=== PATIENT | female | born 1950 | race Caucasian/White ===

== ENCOUNTER → 2021-09-16 | Outpatient (CLI) | payer MEDICARE, OTHER ==
[2021-09-16 13:38] LABS: PLATELET COUNT, AUTOMATED 137 10^3/uL (150-450)
== END ==
LOC: M LAB 11:23
PROVIDERS: ATTEND Internal Medicine Hematology
DX: D69.6 Thrombocytopenia, unspecified (principal)

== ENCOUNTER → 2022-07-21 | Outpatient (CLI) | payer MEDICARE, OTHER | LOC: M SLEEP HO 11:34 | PROVIDERS: ATTEND Internal Medicine Cardiovascular Disease | DX: G47.33 Obstructive sleep apnea (adult) (pediatric) (principal) ==

== ENCOUNTER → 2024-05-18 | Outpatient (CLI) | payer MEDICARE, OTHER ==
[~2024-05-18] MED LIST: AMMO12CR7 TOP; BISO1TAB19; BUSP15TA47; CHOL4POW26; CITA40TA7; COLE625T; GLIM1TAB84; MAGN400C2 PO; MAGN400T2 PO; OLME1TAB91; OMEG-28; OMEP40CA5; POTA1TAB23; SENTTAB2 PO; SIMV40TA20; XARE20TA; [UNRECOGNIZED DRUG - CODE]
== END ==
LOC: M RAD 10:07
PROVIDERS: ATTEND Internal Medicine Rheumatology
DX: D69.6 Thrombocytopenia, unspecified (principal); R76.8 Other specified abnormal immunological findings in serum; M25.50 Pain in unspecified joint; I50.30 Unspecified diastolic (congestive) heart failure; I08.0 Rheumatic disorders of both mitral and aortic valves; I37.1 Nonrheumatic pulmonary valve insufficiency

== ENCOUNTER → 2024-05-23 | Outpatient (CLI) | payer MEDICARE, OTHER | LOC: M CARPUL 10:52 | PROVIDERS: ATTEND Internal Medicine Rheumatology | DX: D69.6 Thrombocytopenia, unspecified (principal); R76.8 Other specified abnormal immunological findings in serum; M25.50 Pain in unspecified joint ==